=== PATIENT | male | born 2000 | race Two or more races ===

== ENCOUNTER 2024-11-28 21:40 | Emergency (ER) | payer OTHER ==
[~2024-11-28] VITALS: Ht 160 cm; Wt 45.0 kg
[2024-11-28 21:40] VITALS: BP 129/89; RESP 20; TEMP 98.6; O2SAT 98
[2024-11-28 21:47] VITALS: PULSE 97
--- NOTE | 2024-11-28 22:00 | ED.PDOC ---
HPI Comments 24-year-old male with a history of anxiety brought in by family complaining of left-sided chest pain onset about 30 minutes ago while performing light exercise. Pain is described as pressure-like and tight, associated with shortness of breath and feeling anxious. Patient states he has been under more stress lately. He denies any fever, cough, nausea, vomiting, diaphoresis or edema. Chief Complaint: Chest Pain Time Seen by MD: 21:43 Allergies: Coded Allergies: NO KNOWN ALLERGIES (Unverified , 11/28/24) Past Medical History Past Medical History (Other): Anxiety Surgical History: Denies all surgeries Family History Family History: No family hx of Heart shannan Family History (Other): Denies family history of VTE Social History Smoker: Non-Smoker Alcohol: Denies ETOH Use Drugs: Denies Drug Use Lives In: Home All Other Systems: Reviewed and Negative (Comprehensive systems review obtained and negative except for what is stated in the HPI.) Physical Exam General Appearance: Mild Distress HEENT: Other (Pupils and face symmetric. Moist mucous membranes.) Neck: Full Range of Motion, Normal Inspection Respiratory: Lungs Clear, No Accessory Muscle Use, No Respiratory Distress, Normal Breath Sounds, Other (Pectus excavatum) Cardiovascular: No Edema, No JVD, Tachycardia Breast Exam: Deferred Gastrointestinal: Non Tender, Soft Genitalia: Deferred Pelvic: Deferred Rectal: Deferred Extremities: Normal inspection, Normal range of motion, Non-tender, No pedal edema Neurologic: Alert (Oriented x4), Normal Affect, Other (Ambulatory. Appears anxious.) Cerebellar Function: NOT DONE Reflexes: NOT DONE Skin: Dry, Pallor, Warm Lymphatic: NOT DONE EKG EKG : Comments Sinus rhythm, rate 97, normal intervals, borderline right axis deviation, normal QRS, no ST/T changes. Was a procedure done? Was a procedure done?: No CP Differential Dx Differential Diagnosis: Angina, Anxiety / Panic Attack, Hyperventilation, [place], Pulmonary Embolus, Other (GI etiology of pain) Differential Diagnosis: CHF Differential Diagnosis: Chest Wall Pain, Esophageal reflux/spasm, Gastritis, Pericarditis, Pneumonia X-Ray, Labs, Meds, VS Vital Signs Date Time Temp Pulse Resp B/P (MAP) Pulse Ox O2 Delivery O2 Flow Rate FiO2 11/28/24 21:47 97 11/28/24 21:40 98.6 114 20 129/89 (102) 98 98.6 Lab Test 11/28/24 22:48 11/28/24 21:51 Range/Units Troponin I High Sensitivity 80 *H 80 *H </=54 ng/L White Blood Count 6.4 4.4-10.8 10^3/uL Red Blood Count 5.57 4.5-5.90 10^6/uL Hemoglobin 15.5 13.5-17.5 g/dL Hematocrit 45.4 41.0-53.0 % Mean Corpuscular Volume 81.5 80.0-100.0 fL Mean Corpuscular Hemoglobin 27.8 L 28.0-32.0 pg Mean Corpuscular Hemoglobin Concent 34.1 32.0-36.0 g/dL Red Cell Distribution Width 13.9 11.8-14.3 % Platelet Count 140 140-450 10^3/uL Mean Platelet Volume 8.2 6.9-10.8 fL Neutrophils (%) (Auto) 48.4 37.0-80.0 % Lymphocytes (%) (Auto) 42.2 10.0-50.0 % Monocytes (%) (Auto) 7.6 0.0-12.0 % Eosinophils (%) (Auto) 1.3 0.0-7.0 % Basophils (%) (Auto) 0.5 0.0-2.0 % Neutrophils # (Auto) 3.1 1.6-8.6 10 ^3/uL Lymphocytes # (Auto) 2.7 0.4-5.4 10 ^3/uL Monocytes # (Auto) 0.5 0-1.3 10 ^3/uL Eosinophils # (Auto) 0.1 0-0.8 10 ^3/uL Basophils # (Auto) 0 0-0.2 10 ^3/uL Nucleated Red Blood Cells 0.2 % Prothrombin Time 10.9 9.3-11.8 sec Prothrombin Time INR 1.03 0.9-1.15 Activated Partial Thromboplast Time 28.8 24.5-34.5 SEC D-Dimer, Quantitative < 0.19 0.0-0.49 mg/L FEU Sodium Level 140 136-145 mmol/L Potassium Level 3.0 L 3.5-5.1 mmol/L Chloride Level 107 98-107 mmol/L Carbon Dioxide Level 24 20-31 mmol/L Anion Gap 9 5-15 Blood Urea Nitrogen 11 9-23 mg/dL Creatinine 0.97 0.700-1.30 mg/dL Glomerular Filtration Rate Calc 112 >90 mL/min BUN/Creatinine Ratio 11.3 10.0-20.0 Serum Glucose 90 74-106 mg/dL Calcium Level 9.4 8.7-10.4 mg/dL Total Bilirubin 0.4 0.2-1.0 mg/dL Aspartate Amino Transferase (AST) 19 13-40 U/L Alanine Aminotransferase (ALT) 18 7-40 U/L Alkaline Phosphatase 75 46-116 U/L B-Type Natriuretic Peptide 5.90 0-100 pg/mL Total Protein 7.2 5.7-8.2 g/dL Albumin 4.5 3.2-4.8 g/dL Lipase 56 H 12-53 U/L Current Medications Medications (Trade) Dose Ordered Sig/Linus Route Start Time Stop Time Status Last Admin Lorazepam (Ativan Tablet) 1 mg ONCE ONCE PO 11/28/24 21:45 11/28/24 21:51 DC 11/28/24 22:11 X-Ray, Labs, Meds, VS Comment 24-year-old male with a history of anxiety complaining of chest pain Vitals remarkable for heart rate 114 Exam remarkable for initial mild tachycardia and anxious/pale appearance Rhythm strip independently interpreted by me: Sinus rhythm, rate 97, no ectopy. Chest x-ray one view independently interpreted by me: Cardiac silhouette normal size, no definite infiltrate or effusion, normal mediastinal width, grossly normal bony thorax, no free air, no pneumothorax. CBC normal, CMP remarkable for potassium 3, lipase 56, BNP normal, serial troponins 80 and 80, D-dimer and coag panel unremarkable Patient treated with the following in the ED: Ativan 1 mg p.o., aspirin 325 mg p.o., Nitro-Bid 1/2 inch to chest wall with improvement of chest pain On re-evaluation, tachycardia has resolved, other vitals were stable. Plan is to admit the patient for ongoing serial troponins and Cardiology evaluation Time of 1ST Reevaluation: 22:30 Reevaluation 1ST: Improved Patient Education/Counseling: Diagnosis, Treatment, Need For Follow Up Family Education/Counseling: No Family Present Departure 1 Departure Time of Disposition: 00:18 Impression: Primary Impression: Non-STEMI (non-ST elevated myocardial infarction) Disposition: ADMITTED INPATIENT Admit to: Tele Condition: Guarded Critical Care Note Critical Care Time?: No Stability Stability form required: No Heart Score Heart Score: Heart Score Response (Comments) Value History Moderate Suspicious 1 EKG Normal 0 Age <45 0 Risk Factors No known risk factors 0 Troponin 1-2 x's Normal limit 1 Total 2 LILLY TAVERAS MD Nov 28, 2024 22:00
[2024-11-28 22:04] LABS: Basophils # (auto) 0 10 ^3/uL (0-0.2); Basophils % (auto) 0.5 % (0.0-2.0); Eosinophils # (auto) 0.1 10 ^3/uL (0-0.8); Eosinophils % (auto) 1.3 % (0.0-7.0); Hematocrit 45.4 % (41.0-53.0); Hemoglobin 15.5 g/dL (13.5-17.5); Lymphocytes # (auto) 2.7 10 ^3/uL (0.4-5.4); Lymphocytes % (auto) 42.2 % (10.0-50.0); Mean Corpuscular Hemoglobin 27.8 pg (28.0-32.0); Mean Corpuscular Hgb Conc. 34.1 g/dL (32.0-36.0); Mean Corpuscular Volume 81.5 fL (80.0-100.0); Monocytes # (auto) 0.5 10 ^3/uL (0-1.3); Monocytes % (auto) 7.6 % (0.0-12.0); Neutrophils # (auto) 3.1 10 ^3/uL (1.6-8.6); Neutrophils % (auto) 48.4 % (37.0-80.0); Nucleated Red Blood Cells % 0.2 %; Platelet Count (auto) 140 10^3/uL (140-450); Red Blood Cells 5.57 10^6/uL (4.5-5.90); Red Cell Distribution Width 13.9 % (11.8-14.3); White Blood Cell 6.4 10^3/uL (4.4-10.8)
[2024-11-28] MEDS: LORazepam 0.5 MG TAB PO ONE (22:11)
[2024-11-28 22:19] LABS: Alanine Aminotransferase 18 U/L (7-40); Albumin 4.5 g/dL (3.2-4.8); Alkaline Phosphatase 75 U/L (46-116); Anion Gap 9 (5-15); Aspartate Aminotransferase 19 U/L (13-40); BUN/Creatinine Ratio 11.3 (10.0-20.0); Blood Urea Nitrogen 11 mg/dL (9-23); Calcium 9.4 mg/dL (8.7-10.4); Carbon Dioxide 24 mmol/L (20-31); Chloride 107 mmol/L (98-107); Glucose 90 mg/dL (74-106); Sodium 140 mmol/L (136-145); Total Protein 7.2 g/dL (5.7-8.2)
[2024-11-28 22:20] LABS: Bilirubin, Total 0.4 mg/dL (0.2-1.0)
[2024-11-28 22:21] LABS: INR 1.03 (0.9-1.15); Lipase 56 U/L (12-53); Partial Thromboplastin Time 28.8 SEC (24.5-34.5); Prothrombin Time 10.9 sec (9.3-11.8)
[2024-11-28] MEDS ORDERED: POTASSIUM EFFERVESENT TAB 25 MEQ PO ONE (23:15)
[2024-11-28] MEDS ORDERED: ASPirin 325 MG TAB PO ONE (23:15)
[2024-11-28] MEDS ORDERED: NITROGLYCERIN 2% OINT 1GM PKG TD ONE (23:15)
--- NOTE | 2024-11-29 12:21 | ECG ---
[facility] Test Date: 2024-11-28 Test Time: 21:47:11 Pat Name: JOHN YODER Department: ER Room: Gender: M Child Neurologist: : 2000 Requested By: EMERGENCY EMERGENCY Order Number: [id number] Reading MD: Jose Cardoso Measurements Intervals [place] Rate: 97 P: 87 [place]: 163 QRS: 96 QRSD: 79 T: 22 QT: 318 QTc: 404 Interpretive Statements Sinus rhythm Right atrial enlargement Borderline right axis deviation Electronically Signed On 11-30-2024 14:57:47 PDT by Jsoe Cardoso Please click the below link to view image of tracing.
--- NOTE | 2024-11-29 17:39 | DVH ---
INDICATION: cp sob TECHNIQUE: Frontal view of the chest. COMPARISON: None FINDINGS: The cardiomediastinal silhouette is within normal limits for size. There is indistinctness of the rig ht heart border which may indicate right middle lobe airspace disease although mild pectus excavatum could cause a similar appearance. There is no significant pleural effusion. There is no pneumothorax. No acute osseous abnormality is identified. IMPRESSION: Indistinctness of the right heart border which may indicate right middle lobe airspace disease althou gh mild pectus excavatum could cause a similar appearance. Correlate clinically. Consider PA and lat eral chest radiographs.
== END 2024-11-29 02:42 | disposition left against medical advice (07) ==
LOC: ER 21:40 → EDBD 21:40 → ER 11-29 02:42
DX: I21.4 Non-ST elevation (NSTEMI) myocardial infarction (principal); F41.9 Anxiety disorder, unspecified
CPT/HCPCS: 36415; 71045; 80053; 83690; 83880; 84484; 85025; 85379; 85610; 85730; 93005